=== PATIENT | female | born 1960 | race Caucasian/White ===

== ENCOUNTER → 2025-02-15 | Outpatient (CLI) | payer OTHER ==
--- NOTE | 2025-02-15 08:45 | CT ---
EXAMINATION TYPE: CT shoulder RT wo con DATE OF EXAM: 02/15/2025 7:27 AM COMPARISON: No radiographic correlation available. CLINICAL INDICATION: Female, 65 years old with history of M25.511 PAIN IN RIGHT SHOULDER; PHH, RT latoya ulder primary osteoarthritis Arthrex protocol TECHNIQUE: CT of the right shoulder utilizing Athrex protocol. Coronal and sagittal reconstructions p erformed. Contrast used: None Oral contrast used: (None CT DLP: 590 mGycm, Automated exposure control for dose reduction was used. FINDINGS: There is severe, [id number] degenerative change of the right glenohumeral joint with mode rate thinning of the glenoid bone stock and overall neutral glenoid version. Subchondral sclerosis an d marginal spurring as well as subchondral cystic changes present on both sides of the joint. Additio nal mild remodeling of the humeral head articular surface. No atrophy of the rotator cuff musculature. There is moderate to severe degenerative joint space narr owing at the acromial clavicular joint with marginal spurring. No significant bursal effusion. Small to physiologic glenohumeral joint effusion. Advanced degenerative changes within the visualized cervical spine. Visualized right hemithorax is clear. IMPRESSION: 1. End-stage, bone on bone right glenohumeral joint OA. Moderate thinning of glenoid bone stock. Neut ral glenoid version. 2. Moderate to severe AC joint OA. 3. No rotator cuff muscle atrophy. 4. Incidental advanced degenerative change throughout the cervical spine. [facility], , 02/15/2025 8:43 AM
== END | disposition home or self-care (01) ==
LOC: RADCTMAIN 06:55
PROVIDERS: ATTEND Orthopaedic Surgery Hand Surgery
DX: M19.011 Primary osteoarthritis, right shoulder (principal)

== ENCOUNTER 2025-03-15 10:35 | Day surgery (SDC) | payer OTHER ==
[~2025-03-15 10:35] MED LIST: HYDROmorphone 0.5 MG/0.5 ML SYRINGE IVP PRN; LIDOCAINE 1% (10MG/ML) FOR IV START INTRADERMA PRN; TRANEXAMIC 1,000 MG/100ML-NACL 1,000 MG in SALINE 1 100ML.BAG IVPB PRN; fentaNYL (PF) 50 MCG/ML 2 ML AMP IVP PRN
[2025-03-15] MEDS: IV FLUID CONTINUATION 1,000 ML IV ONE ×2 (11:43→16:45)
[2025-03-15 11:48] VITALS: TEMP 97.6
[2025-03-15] MEDS: LACTATED RINGERS 1,000 ML IV SCH (12:15)
[2025-03-15] MEDS: ONDANSETRON 4 MG/2 ML VIAL IVP ONE (12:47)
[2025-03-15] MEDS: GABAPENTIN 300 MG CAP PO PRN (12:48)
[2025-03-15] MEDS: MELOXICAM 7.5 MG TAB PO PRN (12:48)
[2025-03-15] MEDS: ACETAMINOPHEN TAB 500 MG TAB PO PRN (12:48)
[2025-03-15] MEDS: DEXAMETHASONE SOD PHOSPHATE 4 MG/ML 1 ML VIAL IV ONE (12:48)
[2025-03-15] MEDS: fentaNYL (PF) 50 MCG/ML 2 ML AMP IVP STA (12:55)
[2025-03-15] MEDS: MIDAZOLAM 2 MG/2 ML VIAL IV PRN (12:55)
[2025-03-15] MEDS: ONDANSETRON 4 MG/2 ML VIAL IVP PRN (13:01)
[2025-03-15] MEDS: ceFAZolin 1,000 MG in SODIUM CHLORIDE 0.9% 1,000 ML IRRIGATION ONE (14:01)
[2025-03-15] MEDS: ceFAZolin 2 GM in DEXTROSE 5% IN WATER 50 ML IVPB PRN (14:01)
[2025-03-15] MEDS ORDERED: SUCCINYLCHOLINE CHLORIDE 200 MG/10 ML VIAL IV ONE (14:01)
[2025-03-15] MEDS ORDERED: TRANEXAMIC 1,000 MG/100ML-NACL PREMIX BAG ONE (14:01)
[2025-03-15] MEDS ORDERED: ROCURONIUM 10 MG/ML (5 ML VIAL) IV ONE (14:01)
[2025-03-15] MEDS ORDERED: PROPOFOL 10 MG/ML 20 ML VIAL IV ONE (14:01)
[2025-03-15] MEDS ORDERED: fentaNYL (PF) 50 MCG/ML 2 ML AMP ONE (14:01)
[2025-03-15] MEDS ORDERED: DEXAMETHASONE SOD PHOSPHATE 4 MG/ML 1 ML VIAL ONE (14:01)
[2025-03-15] MEDS ORDERED: ROPIVACAINE 5 MG/ML 30 ML VIAL ONE (14:01)
[2025-03-15] MEDS ORDERED: MIDAZOLAM 2 MG/2 ML VIAL ONE (14:01)
[2025-03-15] MEDS ORDERED: PHENYLEPHRINE 10 MG/ML VIAL ONE (14:01)
[2025-03-15] MEDS ORDERED: LIDOCAINE 1% INJ 10MG/ML (20 ML MDV) ONE (14:01)
--- NOTE | 2025-03-15 14:16 | P.ANPRN ---
Procedure Note - Anesthesia - Nerve Block Performed Right Interscalene Single Time Out Performed: Yes Date of Procedure: 03/15/25 Procedure Start Time: 12:55 Procedure Stop Time: 13:01 Location of Patient: PreOp Indication: Acute Post-Operative Pain, Requested by Surgeon Sedation Type: Sedate with meaningful contact maintained Preparation: Sterile Prep Position: Supine Needle Types: Pajunk Needle Gauge: 21 Ultrasound used to visualize needle placement: Yes Ultrasound used to observe medication spread: Yes Injectate: 0.5% Ropivacaine (see comment for volume) (30 ml + 4 mg D examethasone) Blood Aspirated: No Pain Paresthesia on Injection Noted: No Resistance on Injection: Normal Image Stored and Saved: Yes Events: Uneventful and Well Tolerated
[2025-03-15] MEDS: HYDROcodone/APAP 5-325MG 1 EACH TAB PO STA (18:15)
[2025-03-15 18:21] VITALS: BP 120/63; PULSE 94; RESP 15
--- NOTE | 2025-03-16 16:10 | P.OP ---
Date of Procedure: 03/15/25 Preoperative Diagnosis: Right glenohumeral osteoarthritis Postoperative Diagnosis: same Procedure(s) Performed: Right anatomic shoulder arthroplasty Implants: Martir comprehensive Mona Stemless Glenoid - size 3 Humerus - 32 mm cage, 42 mm x 18mm head Anesthesia: sierra MIGUEL Surgeon: Carisa Hernández Agriculture Laborer #1: Melissa Maier Estimated Blood Loss (ml): 150 Condition: stable Disposition: PACU Indications for Procedure: Patient has right glenohumeral arthritis that has failed conservative management with injections and therapy. They have an intact rotator cuff on MRI so we will proceed with an anatomic total shoulder arthroplasty. She is only 65 so we will use a stemless prosthesis. Description of Procedure: The patient, operative extremity, and procedure were identified in the preop holding area. After informed consent was obtained, they received a regional block and was brought back to the OR where they were placed under general and placed in the beach chair position. All bony and neurovascular structures were well padded. The upper extremity was then prepped and draped in normal sterile fashion. An oblique incision was then made from the corocoid towards the attachment of the deltoid. Dissection was carried down to the delto pec interval and the cephalic vein was identified and mobilized laterally. About 5mm of the pectoralis insertion was released. A davila elevator was swept under the acormion to clear the subdeltoid space. The conjoined tendon was identified and the clavipectoral fascia was released to allow for placement of the gonzales retractor. The biceps tendon was located in the groove and released. A tenodesis was performed distal to the bicipital groove with an 0 vicryl. A subscapularis tenotomy was performed in an oblique fashion leaving a cuff of tissue superiorly. The tendon was tagged with 0 vicryl. The humerus was externally rotated until the joint dislocated. The humeral release was extended to the latissimus tendon distally. Staying on bone, the capsule was released from under the humeral osteophytes. The inferior osteophytes were then removed with an osteotome and ronguer. The humeral cut jig was then attached and a saw was used to resect the humeral head. Sizing showed that a 32mm diameter porous would be appropriate. The protector was then placed. The capsule was teased away from the subscapularis tendon and removed with bovie cautery. Attention was then turned to the glenoid. The biceps tendon was followed to the labrum which was removed using bovey cautery. The axillary nerve was palpated and protected. The edges of the glenoid were exposed. The aiming guide was used to insert the guide pin in the center of the glenoid. Size 3 showed good coverage of the glenoid surface. The appropriate reamers were utilized to create the bleeding bone base for the glenoid. The central and peripheral holes were drilled. The glenoid was thoroughly irrigated and dried. Cement was mixed and placed on the peripheral pegs of the glenoid. This was then impacted into place and held while the cement cured. Attention was then turned back to the humerus. A 42mm head was selected. Reduction showed appropriate tension with 50% posterior translation with good bounce back. Reduction of the subscapularis tendon showed appropriate tension. The trials were removed and a hole was drilled in the lesser tuberosity. Fiberwire was fed through to facilitate the subscapularis tendon repair. The final humeral headless component was inserted. Pulse lavage with normal saline was used to irrigate the construct. The subscapularis was reduced without undue tension. Superiorly, the tendon was repaired to the cuff remaining. Inferiorly, an osseous repair was performed through the lesser tuberosity. Stability was again tested and found to be adequate. The wound was closed in a layered fashion with 0 vicryl, 3.0 vicryl, 4.0 monocryl, and skin glue. Wound was dressed with an optifoam dressing. The skilled assistance of the advanced practitioner was necessary through the entirety of the case for retraction and protection of important neurovascular structures.
== END 2025-03-15 18:52 | disposition home or self-care (01) ==
LOC: OR 10:35 → 4SSUR 17:13 → OR 17:13
PROVIDERS: ATTEND Orthopaedic Surgery Hand Surgery
DX: M19.011 Primary osteoarthritis, right shoulder (principal); G89.18 Other acute postprocedural pain; E03.9 Hypothyroidism, unspecified
CPT/HCPCS: 23472; 64415; C1776; C1713; J2250; J0330; J1100; J0690 ×2; J2405; J2003; J3010; J2795; J2704; J2371